=== PATIENT | male | born 1990 | race Caucasian/White ===

== ENCOUNTER 2016-10-07 13:47 | Emergency (ER) | payer OTHER ==
[2016-10-07 13:57] VITALS: BP 145/94; TEMP 98.5; BMI 30.5
--- NOTE | 2016-10-07 14:35 | DI ---
Exam: Three-view right foot. Date: 10/07/2016. Comparison: None. HISTORY: Pain. FINDINGS: The soft tissues are within normal limits. The mineralization is normal. The bones are intact and the joint spaces are preserved. Impression: No acute osseous abnormality in the right foot.
--- NOTE | 2016-10-07 14:35 | DI ---
Exam: Three-view right ankle. Date: 10/07/2016. Comparison: None. HISTORY: Pain on the lateral side of the ankle. FINDINGS: The soft tissues are within normal limits. The mineralization is normal. The bones are intact and the joint spaces are preserved. Impression: No acute osseous abnormality in the right ankle.
[2016-10-07] MEDS ORDERED: NORCO 7.5-325 PO STA (14:44)
--- NOTE | 2016-10-07 14:48 | ED.PDOC ---
General ED Provider: Dr. DIAMANTE PEPPER-ER Chief Complaint: Ankle Pain/Injury Stated Complaint: i hurt my ankle Time Seen by Physician: 13:50 Mode of Arrival: Walk-In Information Source: Patient, Family Exam Limitations: No limitations Nursing and Triage Documentation Reviewed and Agree: Yes Musculoskeletal Complaint Exam - Ankle/Foot Complaint/Exam Location of Injury: Reports: Right, Ankle Mechanism of Injury: Reports: Trauma Onset/Duration: today Symptoms Are: Reports: Still present Onset of Pain: Reports: Immediate Initial Severity: Mild Current Severity: Mild Location: Reports: Discrete (right ankle) Character: Reports: Dull, Aching Alleviating: Reports: None Aggravating: Reports: Movement, Weight bearing Able to Bear Weight: No Associated Signs and Symptoms: Reports: Swelling, Bruising. Denies: Redness, Fever, Weakness, Numbness, Tingling Gout Risk Factors: Reports: Male Related Surgical History: Reports: None Lower Extremity Findings: Present: Swelling, Ecchymosis, Tenderness, Limited range of motion Achilles Tendon Abnormality: No Tenderness: Present: Lateral malleolus Limited Range of Motion: Present: Inversion, Eversion, Dorsiflexion, Plantarflexion Differential Diagnosis: Closed Fracture, Sprain, Strain Review of Systems - Review Of Systems Constitutional: Reports: No symptoms Eyes: Reports: No symptoms Ears, Nose, Mouth, Throat: Reports: No symptoms Respiratory: Reports: No symptoms Cardiac: Reports: No symptoms GI: Reports: No symptoms : Reports: No symptoms Musculoskeletal: Reports: Joint pain, Joint swelling, Muscle pain Skin: Reports: No symptoms Neurological: Reports: No symptoms Endocrine: Reports: No symptoms Hematologic/Lymphatic: Reports: No symptoms All Other Systems: Reviewed and Negative Past Medical History - Past Medical History Previously Healthy: Yes Endocrine: Reports: None Cardiovascular: Reports: Hypertension Respiratory: Reports: None Hematological: Reports: None Gastrointestinal: Reports: None Genitourinary: Reports: None Neuro/Psych: Reports: None Musculoskeletal: Reports: None Cancer: Reports: None - Surgical History General Surgical History: Reports: Orthopedic - Family History Family History: Reports: Unknown - Social History Smoking Status: Current some day smoker Hx Substance Use: No Alcohol Screening: None Lives: With family Physical Exam - Physical Exam Appearance: Well-appearing, No pain distress, Well-nourished Pain Distress: Mild Eyes: ALEK, EOMI, Conjunctiva clear ENT: Ears normal, Nose normal, Oropharynx normal Neck: Supple Respiratory: Airway patent, Breath sounds clear, Breath sounds equal, Respirations nonlabored Cardiovascular: RRR, Pulses normal, No rub, No murmur GI/: Soft, Nontender, No masses, Bowel sounds normal, No Organomegaly Musculoskeletal: Limited ROM Skin: Warm, Dry, Normal color Neurological: Sensation intact, Motor intact, Reflexes intact, Cranial nerves intact, Alert, Oriented Psychiatric: Affect appropriate, Mood appropriate Interpretation - Radiology Interpretation Radiology Interpretation By: Radiologist Radiology Results: Negative Critical Care Note - Critical Care Note Total Time (mins): 0 Course - Course Orders, Labs, Meds: Orders Category Date Time Status CRUTCHES [ED CRUTCHES] .ONCE EMERGENCY 10/07/16 14:43 Active ED JANINE WRAP .ONCE EMERGENCY 10/07/16 14:43 Active ED SPLINT APPLICATION .ONCE EMERGENCY 10/07/16 14:43 Active Hydrocodone Bit/Acetaminophen [[place] 7.5-325] MEDS 10/07/16 14:44 Discontinued 1 tab PO ONCE STA ANKLE, RIGHT MIN 3 VIEWS Stat RADS 10/07/16 14:13 Completed FOOT, RIGHT 3 VIEWS Stat RADS 10/07/16 14:13 Completed Medications Discontinued Medications Generic Name Dose Route Start Last Admin Trade Name Freq PRN Reason Stop Dose Admin Acetaminophen/Hydrocodone Bitart 1 tab 10/07/16 14:44 [place] 7.5-325 PO 10/07/16 14:45 ONCE STA Vital Signs: Temp Pulse Resp BP Pulse Ox 10/07/16 13:47 98.5 F 126 H 20 145/94 H 100 Departure - Departure Time of Disposition: 14:47 Disposition: HOME SELF-CARE Discharge Problem: Ankle strain Qualifiers: Encounter type: initial encounter Laterality: right Qualifier Code: (S96.911A) Strain of unspecified muscle and tendon at ankle and foot level, right foot, initial encounter Instructions: Ankle Sprain (ED), Ankle Stirrup Splint (ED) Condition: Good Pt referred to PMD for follow-up: Yes Additional Instructions: stay in splint and use crutches--norco 5mg q 4hrs prn pain#12--f/u with pcp this week Allergies/Adverse Reactions: Allergies No Known Allergies Allergy (Verified 10/07/16 13:53) Home Medications: Ambulatory Orders Atomoxetine HCl [Strattera] 80 mg PO DAILY 10/07/16 Disposition Discussed With: Patient
== END 2016-10-07 15:05 | disposition home or self-care (01) ==
LOC: ED 13:47
DX: S96.911A Strain of unspecified muscle and tendon at ankle and foot level, right foot, initial encounter (principal); I10 Essential (primary) hypertension
CPT/HCPCS: 99283

== ENCOUNTER 2016-11-08 15:10 | Outpatient (CLI) ==
--- NOTE | 2016-11-09 09:33 | MRI ---
EXAM: MRI of the right ankle/hind-foot without contrast COMPARISON: Right foot and ankle radiographs 10/07/2016. HISTORY: Right ankle pain. Fall. TECHNIQUE: Multiplanar noncontrast MR images of the right ankle/hind-foot were acquired using a 1.2 Laila magnet. FINDINGS: Mild degenerative changes of the ankle/hind-foot with most pronounced osteophytes dorsall y at the talonavicular joint. Small tibiotalar and subtalar joint effusions. 6 x 5 mL os trigonum with secondary degenerative changes. Low-level marrow edema throughout the medial and posterior mal leoli of the tibia which may represent reactive edema/stress reaction or contusion without a discret e fracture. The talar dome is intact. The distal Achilles tendon and proximal portion of the plantar fascia are intact. The anterior tibial, extensor hallicus longus and extensor digitorum tendons are intact. Mild poste rior tibial tendinosis and tenosynovitis. The flexor digitorum and flexor hallicus longus tendons a re intact. Mild peroneus longus/brevis tendinosis. Suspected small partial/split tear of the peron eus brevis just below the lateral malleolus. There is subcutaneous edema throughout the ankle most extensive anteriorly and laterally. Low-level edema medially. There is abnormal signal and morphology of the anterior tibiofibular ligament cons istent with a tear with discontinuity of the fibers the fibular attachment. Sprain of the interosse ous component of the syndesmosis without abnormal widening of the syndesmosis. Sprain/partial tear of the posterior tibiofibular ligament with suspected stripping of the posterior malleolar attachmen t ligament though without a definite avulsion fracture. There appear to be some thin residual intac t fibers. Multi septated T2 hyperintense lesion measuring 1.3 x 0.5 x 0.4 cm overlying the posterio r talofibular ligament and os trigonum suggesting a small ganglion/synovial cyst. Low grade sprains of the anterior talofibular, posterior talofibular and calcaneofibular ligaments. Sprain of the deltoid ligament. IMPRESSION: 1. Injury of the syndesmosis with a tear of the anterior tibiofibular ligament as well as sprain of the interosseous component of the syndesmosis and sprain/partial tear with stripping of the posteri or tibiofibular ligament. No abnormal widening of the syndesmosis. Marrow edema within the posterio r malleolus of the tibia along the attachment of the posterior tibiofibular ligament without a discr ete avulsion fracture. Marrow edema extends through the posterior portion of the medial malleolus. 2. Low grade sprains of additional lateral supporting ligaments of the ankle as well as the deltoid ligament medially. 3. Mild posterior tibial tendinosis and tenosynovitis. Peroneus longus/brevis tendinosis with susp ected small partial/split tear of the peroneus brevis. 4. Os trigonum with secondary degenerative changes. Overlying small ganglion/synovial cyst. Corre late for signs of posterior ankle impingement. 5. Small tibiotalar and subtalar joint effusions. 6. Subcutaneous edema which is most extensive anteriorly and laterally.
== END 2016-11-08 15:11 | disposition home or self-care (01) ==
LOC: RAD 15:10
PROVIDERS: ATTEND Nurse Practitioner Family
DX: M25.571 Pain in right ankle and joints of right foot (principal)

== ENCOUNTER 2017-03-12 14:11 | Outpatient (CLI) ==
--- NOTE | 2017-03-12 14:57 | US ---
EXAM: Ultrasound scrotum and contents. HISTORY: Left scrotal mass and tenderness. COMPARISON: None available. TECHNIQUE: Loaiza-scale and color Doppler images. FINDINGS: The right testicle measures 4.3 x 2.6 x 3.2 cm. There is homogeneous echogenicity with vascular flow. Right epididymis is unremarkable. There is a trace amount right scrotal fluid. The left testicle measures 4.1 x 2.4 x 3.2 cm. There is homogeneous echogenicity with vascular flow. Left epididymis is unremarkable. A 0.7 x 0.9 x 0.7 cm hyperechoic focus is seen within the scrotal sac posterior to the left testicle. There is a trace amount of left scrotal fluid. IMPRESSION: 1. Small hyperechoic focus posterior to the left testicle could represent a lipoma. Area of hemorrh age in the setting of recent trauma is an additional consideration. 2. No sonographic abnormality of the testes. 3. Trace bilateral hydroceles.
== END 2017-03-12 14:12 | disposition home or self-care (01) ==
LOC: RAD 14:11
PROVIDERS: ATTEND Physician Assistant
DX: N50.89 Other specified disorders of the male genital organs (principal)

== ENCOUNTER 2017-06-20 00:35 | Emergency (ER) ==
[2017-06-20] MEDS ORDERED: DILAUDID 2 MG/ML SYRINGE IM STA ×2 (00:41→01:33)
[2017-06-20] MEDS ORDERED: ZOFRAN 4 MG/2 ML IM STA ×2 (00:41→01:33)
[2017-06-20] MEDS ORDERED: ZOFRAN 4 MG/2 ML ONE (00:44)
[2017-06-20] MEDS ORDERED: DILAUDID 2 MG/ML SYRINGE ONE (00:44)
--- NOTE | 2017-06-20 00:45 | ED.PDOC ---
General ED Provider: Dr. KRISTINE HUTCHINSON Chief Complaint: Finger Pain/Injury Stated Complaint: Deep Laceration to left thumb, while using the table saw. can see bone Time Seen by Physician: 00:42 Primary Care Provider: ANILA LEE Nursing and Triage Documentation Reviewed and Agree: Yes Reviewed sepsis parameters & appropriate labs ordered?: No System Inflammatory Response Syndrome: Not Applicable Sepsis Protocol: For patient's 13 years and over: Temp is 96.8 and below OR 101 and greater Pulse >90 BPM Resp >20/minute Acutely Altered Mental Status Are patient's symptoms suggestive of a new infection, such as: -Pneumonia -Skin, Soft Tissue -Endocarditis -UTI -Bone, Joint Infection -Implantable Device -Acute Abdominal Infection -Wound Infection -Meningitis -Blood Stream Catheter Infection -Unknown Skin Complaint Exam - Lac/Torso/Upper Ext. Complaint/Exam Location of Injury: Left (thumb) Mechanism of Injury: Laceration, Puncture, FB potential Symptoms Are: Still present Initial Severity: Severe Current Severity: Severe Aggravating: Movement Alleviating: None Associated Signs and Symptoms: Denies: Fever, Chills, Erythema, Numbness, Tingling Differential Diagnoses: Laceration Review of Systems - Review Of Systems Constitutional: Reports: No symptoms Eyes: Reports: No symptoms Ears, Nose, Mouth, Throat: Reports: No symptoms Respiratory: Reports: No symptoms Cardiac: Reports: No symptoms GI: Reports: No symptoms : Reports: No symptoms Musculoskeletal: Reports: No symptoms Skin: Reports: No symptoms Neurological: Reports: No symptoms Endocrine: Reports: No symptoms Hematologic/Lymphatic: Reports: No symptoms All Other Systems: Reviewed and Negative Past Medical History - Past Medical History Previously Healthy: Yes Endocrine: Reports: None Cardiovascular: Reports: Hypertension Respiratory: Reports: None Hematological: Reports: None Gastrointestinal: Reports: None Genitourinary: Reports: None Neuro/Psych: Reports: None Musculoskeletal: Reports: None Cancer: Reports: None - Surgical History General Surgical History: Reports: Orthopedic - Family History Family History: Reports: Unknown - Social History Smoking Status: Current some day smoker Smoking Cessation Counseling Time: > 3 min - 10 min Hx Substance Use: No Alcohol Screening: None Physical Exam - Physical Exam Appearance: Well-appearing, No pain distress, Well-nourished Eyes: ALEK, EOMI, Conjunctiva clear ENT: Ears normal, Nose normal, Oropharynx normal Respiratory: Airway patent, Breath sounds clear, Breath sounds equal, Respirations nonlabored Cardiovascular: RRR, Pulses normal, No rub, No murmur GI/: Soft, Nontender, No masses, Bowel sounds normal, No Organomegaly Musculoskeletal: Normal strength, ROM intact, No edema, No calf tenderness Skin: Warm (left thumb had deep laceration, rom in destal thumb decreased.), Dry , Normal color Neurological: Sensation intact, Motor intact, Reflexes intact, Cranial nerves intact, Alert, Oriented Psychiatric: Affect appropriate, Mood appropriate Critical Care Note - Critical Care Note Total Time (mins): 25 Course - Course Orders, Labs, Meds: Orders Category Date Time Status Ceftriaxone Sodium [Rocephin] MEDS 06/20/17 01:33 Stat 1 gm IM ONCE STA Hydromorphone HCl/Pf [Dilaudid 2 mg/ml Syringe] MEDS 06/20/17 00:44 Discontinued 2 mg .ROUTE .STK-MED ONE Hydromorphone HCl/Pf [Dilaudid 2 mg/ml Syringe] MEDS 06/20/17 00:41 Discontinued 2 mg IM ONCE STA Hydromorphone HCl/Pf [Dilaudid 2 mg/ml Syringe] MEDS 06/20/17 01:33 Stat 2 mg IM ONCE STA Lidocaine HCl/Pf [Lidocaine HCl 1% Sdv] MEDS 06/20/17 01:33 Stat 5 ml SUBCUT ONCE STA Ondansetron HCl/Pf [Zofran 4 mg/2 ml] MEDS 06/20/17 00:44 Discontinued 4 mg .ROUTE .STK-MED ONE Ondansetron HCl/Pf [Zofran 4 mg/2 ml] MEDS 06/20/17 00:41 Discontinued 4 mg IM ONCE STA Ondansetron HCl/Pf [Zofran 4 mg/2 ml] MEDS 06/20/17 01:33 Stat 4 mg IM ONCE STA THUMB, LEFT Stat RADS 06/20/17 00:41 Completed Medications Generic Name Dose Route Start Last Admin Trade Name Freq PRN Reason Stop Dose Admin Ceftriaxone Sodium 1 gm 06/20/17 01:33 Rocephin IM 06/20/17 01:34 ONCE STA Hydromorphone HCl 2 mg 06/20/17 01:33 Dilaudid 2 Mg/Ml Syringe IM 06/20/17 01:34 ONCE STA Lidocaine HCl 5 ml 06/20/17 01:33 Lidocaine Hcl 1% Sdv SUBCUT 06/20/17 01:34 ONCE STA Ondansetron HCl 4 mg 06/20/17 01:33 Zofran 4 Mg/2 Ml IM 06/20/17 01:34 ONCE STA Discontinued Medications Generic Name Dose Route Start Last Admin Trade Name Enoc PRN Reason Stop Dose Admin Hydromorphone HCl 2 mg 06/20/17 00:41 06/20/17 00:51 Dilaudid 2 Mg/Ml Syringe IM 06/20/17 00:42 2 mg ONCE STA Administration Ondansetron HCl 4 mg 06/20/17 00:41 06/20/17 00:52 Zofran 4 Mg/2 Ml IM 06/20/17 00:42 4 mg ONCE STA Administration Vital Signs: Temp Pulse Resp BP Pulse Ox 06/20/17 00:44 98 F 102 H 20 168/96 H 100 Departure - Departure Time of Disposition: 01:34 Disposition: TSF SHORT-TRM HOSP Discharge Problem: Laceration of thumb Qualifiers: Encounter type: initial encounter Damage to nail status: with damage Foreign body presence: without foreign body Laterality: left Qualified Code(s): S61.112A - Laceration without foreign body of left thumb with damage to nail, initial encounter Instructions: Tendon Laceration (ED) Condition: Stable Pt referred to PMD for follow-up: Yes IPMP verified?: No Additional Instructions: Dr Amador is going to see patient in his office at 8 am. keep hand elevated Prescriptions: Hydrocodone Bit/Acetaminophen [[place] 7.5-325] 1 each PO Q8H #7 tablet Allergies/Adverse Reactions: Allergies No Known Allergies Allergy (Verified 10/07/16 13:53) Home Medications: Ambulatory Orders Lisdexamfetamine Dimesylate [Vyvanse] 40 mg PO DAILY #30 10/10/16 Escitalopram Oxalate [Lexapro] 5 mg PO DAILY 06/20/17 Hydrocodone Bit/Acetaminophen [[place] 7.5-325] 1 each PO Q8H #7 tablet 06/20/17 Disposition Discussed With: Patient, Family
[2017-06-20 00:54] VITALS: BP 168/96; TEMP 98; BMI 29.7
--- NOTE | 2017-06-20 01:01 | DI ---
EXAM: Left thumb, three views, 06/20/2017 HISTORY: Puncture wound COMPARISON: None. FINDINGS / IMPRESSION: The visualized osseous structures appear intact. Anatomic alignment appears within normal limits. There is no evidence of fracture or dislocation. No acute osseous abnormality.
[2017-06-20] MEDS ORDERED: ROCEPHIN IM STA (01:33)
[2017-06-20] MEDS ORDERED: LIDOCAINE HCL 1% SDV SUBCUT STA (01:33)
== END 2017-06-20 02:13 | disposition home or self-care (01) ==
LOC: ED 00:35
DX: S61.112A Laceration without foreign body of left thumb with damage to nail, initial encounter (principal); W29.8XXA Contact with other powered hand tools and household machinery, initial encounter; I10 Essential (primary) hypertension; F17.210 Nicotine dependence, cigarettes, uncomplicated
CPT/HCPCS: 96372; 99283

== ENCOUNTER 2017-09-29 21:28 | Emergency (ER) | payer OTHER ==
[2017-09-29] MEDS ORDERED: URO-JET MUCOUSMEMB STA (21:33)
[2017-09-29] MEDS ORDERED: SODIUM CHLORIDE 1,000 ML IV STA (21:34)
[2017-09-29 21:44] VITALS: TEMP 97.8; BMI 30.1
--- NOTE | 2017-09-29 21:48 | ED.PDOC ---
General ED Provider: Dr. DIAMANTE PEPPER-ER Chief Complaint: Overdose Stated Complaint: he took an overdose of 5mg of valium--told ems everything is my fault--maybe 70-80 tabs---his said he tried to hang himself last week but was unsuccessful Time Seen by Physician: 21:35 Mode of Arrival: Ambulance Information Source: Family, EMT Exam Limitations: No limitations Primary Care Provider: ANILA LEE Nursing and Triage Documentation Reviewed and Agree: Yes Reviewed sepsis parameters & appropriate labs ordered?: Yes System Inflammatory Response Syndrome: Not Applicable Sepsis Protocol: For patient's 13 years and over: Temp is 96.8 and below OR 101 and greater Pulse >90 BPM Resp >20/minute Acutely Altered Mental Status Are patient's symptoms suggestive of a new infection, such as: -Pneumonia -Skin, Soft Tissue -Endocarditis -UTI -Bone, Joint Infection -Implantable Device -Acute Abdominal Infection -Wound Infection -Meningitis -Blood Stream Catheter Infection -Unknown Psychological Complaint Exam - Overdose/Toxic Exposure Complaint/Exam Patient Complains Of: Overdose Ingestion Occurred: 11/ hrs Exposure Occurred: as above Witnessed: Yes Ingestion: Drug Character: Reports: Oral Aggravating: Reports: Swallowing Treatment Prior To Arrival: None Associated Signs And Symptoms: Reports: Intentional ingestion Related History: Reports: Suicidal gestures Completed Suicide Risk Factors: Male, Gag Reflex Present: Yes Inability To Swallow Present: No Drooling Present: No Glascow Coma Scale (see protocol): 14 Miosis Present: No Mydriasis Present: No Nystagmus Present: No Speech: Present: Dysarthric Aphasia: Present: Expressive Gait: Present: Abnormal Patient Uncooperative For Exam: Yes Mood: Present: Anxious Appearance: Present: Clean Insight: Present: Limited Memory: Impaired Judgement: Impaired Danger To Others: No Patient Medically Stable For: Psych evaluation, Referral, Transfer Differential Diagnoses: Anxiety, Toxic Eposure Quality Indicator For Non-Traumatic Chest Pain/Syncope: EKG Performed Review of Systems - Review Of Systems Constitutional: Reports: No symptoms Eyes: Reports: No symptoms Ears, Nose, Mouth, Throat: Reports: No symptoms Respiratory: Reports: No symptoms Cardiac: Reports: No symptoms GI: Reports: No symptoms : Reports: No symptoms Musculoskeletal: Reports: No symptoms Skin: Reports: No symptoms Neurological: Reports: Anxiety, Depressed, Emotional problems Endocrine: Reports: No symptoms Hematologic/Lymphatic: Reports: No symptoms All Other Systems: Reviewed and Negative Past Medical History - Past Medical History Previously Healthy: Yes Endocrine: Reports: None Cardiovascular: Reports: Hypertension Respiratory: Reports: None Hematological: Reports: None Gastrointestinal: Reports: None Genitourinary: Reports: None Neuro/Psych: Reports: None Musculoskeletal: Reports: None Cancer: Reports: None - Surgical History General Surgical History: Reports: Orthopedic - Family History Family History: Reports: Unknown - Social History Smoking Status: Current some day smoker Hx Substance Use: No Alcohol Screening: Occasionally Lives: With family - Immunizations Tetanus Shot up to Date: No (unknown) Physical Exam - Physical Exam Appearance: Well-appearing, No pain distress, Well-nourished Eyes: ALEK, EOMI, Conjunctiva clear ENT: Ears normal, Nose normal, Oropharynx normal Neck: Supple Respiratory: Airway patent, Breath sounds clear, Breath sounds equal, Respirations nonlabored Cardiovascular: RRR, Pulses normal, No rub, No murmur GI/: Soft, Nontender, No masses, Bowel sounds normal, No Organomegaly Musculoskeletal: Normal strength, ROM intact, No edema, No calf tenderness Skin: Warm, Dry, Normal color Neurological: Sensation intact, Motor intact, Reflexes intact, Cranial nerves intact, Alert to pain, Unresponsive Psychiatric: Affect appropriate, Mood appropriate Interpretation - EKG Interpretation Time of EKG #1: 23:05 Rate: Normal Rhythm: Sinus Ectopy: None [place]: NL ST Segment: Normal Interpretation: nsr Procedures - Intubation Indication: Present: Altered Mental Status, Airway Protection Time of Intubation: 22:05 Medications: Yes: Succinylcholine, Propofol Type of Tube Used: Endotracheal Tube Size: 7.5 Cricoid Pressure Used: Yes Tube Fletcher Used: Yes Number of Attempts: 1 Suction Used: Yes Glidescope Used: Yes CO2 Detector Used: Yes Lung Sounds Equal Bilaterally: Yes Intubation Complications: Present: No complications Tube Inserted By: Anthony george Tube Placement Verified by X-ray: Yes Progress/Xray Impression: et tube in correct position Physician Notification - Case Discussed Physician Notified: dr [email or web address] Time of Notification: 22:59 Critical Care Note - Critical Care Note Total Time (mins): 60 Course - Course Hematology/Chemistry: 09/29/17 21:32 09/29/17 21:38 Orders, Labs, Meds: Lab Review 09/29/17 09/29/17 09/29/17 21:32 21:32 21:38 WBC 7.76 RBC 4.19 L Hgb 12.4 L Hct 36.1 L MCV 86.2 MCH 29.6 MCHC 34.3 RDW Coeff of Esteban 12.4 Plt Count 287 Immature Gran % (Auto) 0.3 Neut % (Auto) 56.5 Lymph % (Auto) 27.2 [place] % (Auto) 9.8 Eos % (Auto) 5.4 Baso % (Auto) 0.8 Immature Gran # (Auto) 0.0 Neut # (Auto) 4.4 Lymph # (Auto) 2.1 [place] # (Auto) 0.8 Eos # (Auto) 0.4 Baso # (Auto) 0.1 Puncture Site Lr O2 Saturation 98.0 ABG pH 7.455 H ABG pCO2 38.3 ABG pO2 103.0 H ABG HCO3 26.9 H ABG Total CO2 28 ABG Base Excess 3 H King Test + O2 Delivery Device Vent FiO2 % 30.0 Sodium 140 Potassium 3.0 L Chloride 107 Carbon Dioxide 24 Anion Gap 12.0 BUN 8 Creatinine 0.80 Estimated GFR (MDRD) 116.00 BUN/Creatinine Ratio 10.00 Glucose 82 Calcium 9.3 Total Bilirubin 0.3 AST 17 ALT 19 Alkaline Phosphatase 66 Total Protein 6.3 L Albumin 3.5 Globulin 2.8 Albumin/Globulin Ratio 1.25 Urine Color Urine Clarity Urine pH Ur Specific Miller Urine Protein Urine Glucose (UA) Urine Ketones Urine Blood Urine Nitrite Urine Bilirubin Urine Urobilinogen Ur Leukocyte Esterase Urine Microscopic RBC Ur Squamous Epith Cells Urine Bacteria Urine Sperm Salicylate Level mg/dL < 5.0 Urine Opiates Screen Ur Oxycodone Screen Urine Methadone Screen Ur Propoxyphene Screen Acetaminophen < 3 L Ur Barbiturates Screen U Tricyclic Antidepress Ur Phencyclidine Scrn Ur Amphetamine Screen U Methamphetamines Scrn U Benzodiazepines Scrn Urine Cocaine Screen U Cannabinoids Screen Plasma/Serum Alcohol 09/29/17 09/29/17 09/29/17 21:38 22:26 22:26 WBC RBC Hgb Hct MCV MCH MCHC RDW Coeff of Esteban Plt Count Immature Gran % (Auto) Neut % (Auto) Lymph % (Auto) [place] % (Auto) Eos % (Auto) Baso % (Auto) Immature Gran # (Auto) Neut # (Auto) Lymph # (Auto) [place] # (Auto) Eos # (Auto) Baso # (Auto) Puncture Site O2 Saturation ABG pH ABG pCO2 ABG pO2 ABG HCO3 ABG Total CO2 ABG Base Excess King Test O2 Delivery Device FiO2 % Sodium Potassium Chloride Carbon Dioxide Anion Gap BUN Creatinine Estimated GFR (MDRD) BUN/Creatinine Ratio Glucose Calcium Total Bilirubin AST ALT Alkaline Phosphatase Total Protein Albumin Globulin Albumin/Globulin Ratio Urine Color Yellow Urine Clarity Clear Urine pH 6.0 Ur Specific [place] >=1.030 Urine Protein 2+ Urine Glucose (UA) Negative Urine Ketones Negative Urine Blood Trace-intact Urine Nitrite Negative Urine Bilirubin 1+ Urine Urobilinogen 0.2 Ur Leukocyte Esterase Negative Urine Microscopic RBC 2-5 Ur Squamous Epith Cells 0-2 Urine Bacteria Trace Urine Sperm 3+ Salicylate Level mg/dL Urine Opiates Screen Negative Ur Oxycodone Screen Negative Urine Methadone Screen Negative Ur Propoxyphene Screen Negative Acetaminophen Ur Barbiturates Screen Negative U Tricyclic Antidepress Negative Ur Phencyclidine Scrn Negative Ur Amphetamine Screen Positive U Methamphetamines Scrn Negative U Benzodiazepines Scrn Positive Urine Cocaine Screen Negative U Cannabinoids Screen Negative Plasma/Serum Alcohol < 10.0 Orders Category Date Time Status ABG DRAW REQUEST Stat CARDIO 09/29/17 21:32 Completed EKG-(ED ONLY) Stat CARDIO 09/29/17 21:32 Completed VENTILATOR Routine CARDIO 09/29/17 23:03 Completed TRANSFER TO OUTSIDE FACILITY .TO [facility] ( CARE 09/29/17 23:00 Active [place] [place], [place]) WRITE TRANSFER/SBAR NOTE ONCE CARE 09/29/17 23:00 Completed DISCHARGE ASSESSMENT ONCE DISCHARGE 09/29/17 23:00 Completed WRITE DISCHARGE NOTE ONCE DISCHARGE 09/29/17 23:00 Completed ED CATHETER INSERTION AND CARE .ONCE EMERGENCY 09/29/17 21:33 Active ED IV/MEDIPORT/POWERPORT .ONCE EMERGENCY 09/29/17 21:34 Active Poison Control [ED POISON CONTROL CONTACTED] .ONCE EMERGENCY 09/29/17 21:52 Active Restraints [ED RESTRAINTS] .ONCE EMERGENCY 09/29/17 22:53 Active ABG Stat LAB 09/29/17 21:32 Completed CBC W/ AUTO DIFF Stat LAB 09/29/17 21:32 Completed COMPREHENSIVE METABOLIC PANEL Stat LAB 09/29/17 21:38 Completed ETOH LEVEL [BLOOD ALCOHOL] Stat LAB 09/29/17 21:38 Completed SALICYLATE Stat LAB 09/29/17 21:38 Completed TYLENOL LEVEL [ACETAMINOPHEN] Stat LAB 09/29/17 21:38 Completed URINALYSIS C & S IF INDICATED Stat LAB 09/29/17 22:26 Completed URINE DRUG SCREEN (RAPID FOR ED) [DRUG SCREEN, URINE, LAB 09/29/17 22:26 Completed RAPID] Stat 0.9 % Sodium Chloride [Saline Flush] MEDS 09/29/17 21:34 Discontinued 1 syr IVF PRN PRN Lidocaine HCl [Uro-Jet] MEDS 09/29/17 21:33 Discontinued 10 ml [id number] ONCE STA Premix Vial [Premix Infusion 100 ml Vial] 1 vial MEDS 09/29/17 22:30 Discontinued Propofol Inj [Diprivan 100 ml Vial] 1,000 mg IV 100 mcg/kg/min Propofol Inj [Diprivan 100 ml Vial] 100 ml MEDS 09/29/17 23:23 Discontinued IV .STK-MED Propofol Inj [Diprivan 20 ml Vial] MEDS 09/29/17 22:13 Discontinued 100 mg IVP ONCE STA Sodium Chloride 0.9% [Sodium Chloride] 1,000 ml MEDS 09/29/17 21:34 Discontinued IV 100 mls/hr Succinylcholine Chloride [Anectine] MEDS 09/29/17 21:50 Discontinued 100 mg IVP ONCE STA CT HEAD W/O CONTRAST Stat RADS 09/29/17 21:32 Completed CXR [CHEST, 1V AP ONLY] Stat RADS 09/29/17 21:32 Completed Medications Discontinued Medications Generic Name Dose Route Start Last Admin Trade Name Freq PRN Reason Stop Dose Admin Sodium Chloride 1,000 mls @ 100 mls/hr 09/29/17 21:34 09/29/17 22:57 Sodium Chloride IV 09/30/17 07:33 100 mls/hr .Q10H STA Administration Propofol 1,000 mg/ Sterile 100 mls @ 52.38 mls/hr 09/29/17 22:30 09/29/17 22: 15 Water IV 100 mcg/kg/min .Q1H55M SIL 52.38 mls/hr Administration Protocol 100 MCG/KG/MIN Lidocaine HCl 10 ml 09/29/17 21:33 09/29/17 22:57 Uro-Jet MUCOUSMEMB 09/29/17 21:34 Not Given ONCE STA Propofol 100 mg 09/29/17 22:13 09/29/17 22:10 Diprivan 20 Ml Vial IVP 09/29/17 22:14 100 mg ONCE STA Administration Sodium Chloride 1 syr 09/29/17 21:34 09/29/17 22:57 Saline Flush IVF 1 syr PRN PRN Administration To flush IV Succinylcholine Chloride 100 mg 09/29/17 21:50 09/29/17 21:59 Anectine IVP 09/29/17 21:51 100 mg ONCE STA Administration Vital Signs: Temp Pulse Resp BP Pulse Ox 09/29/17 22:15 76 14 109/74 09/29/17 22:05 14 09/29/17 21:31 97.8 F 89 18 106/65 95 Departure - Departure Time of Disposition: 22:59 Disposition: TSF SHORT-TRM HOSP Discharge Problem: Drug overdose Condition: Stable Pt referred to PMD for follow-up: No IPMP verified?: No Allergies/Adverse Reactions: Allergies No Known Allergies Allergy (Verified 10/07/16 13:53) Home Medications: Ambulatory Orders Lisdexamfetamine Dimesylate [Vyvanse] 40 mg PO DAILY #30 10/10/16 Escitalopram Oxalate [Lexapro] 5 mg PO DAILY 06/20/17 Transfer Form Completed: Yes Disposition Discussed With: Family
[2017-09-29] MEDS ORDERED: ANECTINE IVP STA (21:50)
--- NOTE | 2017-09-29 22:06 | CT ---
EXAM: CT head without contrast. HISTORY: Mental status change. PROCEDURE: Contiguous axial CT images of the head without contrast with coronal and sagittal reforma ts. FINDINGS: The ventricles and basal cisterns are normal in size and configuration. No evidence of ma ss or midline shift. No intracranial hemorrhage or evidence of large vessel infarct. No extra-axial fluid collection. The paranasal sinuses and mastoid air cells are well-aerated. Impression: Negative CT of the head.
[2017-09-29] MEDS ORDERED: DIPRIVAN 20 ML VIAL IVP STA (22:13)
[2017-09-29] MEDS ORDERED: DIPRIVAN 100 ML VIAL 1,000 MG in PREMIX INFUSION 100 ML VIAL 1 VIAL IV SCH (22:30)
--- NOTE | 2017-09-29 22:39 | ED.PDOC ---
Procedures - Intubation Indication: Present: Altered Mental Status Time of Intubation: 22:01 Medications: Yes: Succinylcholine (RSI - 100mg Anectine IVP, cricoid press Lady RN, EtCO2 +) Type of Tube Used: Endotracheal Tube Size: 7.5 Cricoid Pressure Used: Yes Tube Fletcher Used: Yes Position of Tube at Lip: 23 Number of Attempts: 1 Suction Used: No Glidescope Used: No CO2 Detector Used: Yes Lung Sounds Equal Bilaterally: Yes Intubation Complications: Present: No complications Tube Inserted By: Saulo Hayes CRNA Tube Placement Verified by X-ray: Yes Conscious Sedation - Pre-op Assessment Weight: 192 lb 7.417 oz Surgical History: right knee surgery for MRSA - Medical History Past Medical History: GERD, Anxiety, Other Other History: stomach ulcers 5-6 yrs ago, mass on left testicle-due for U/S 01/27, ptsd
--- NOTE | 2017-09-29 22:40 | ED.PDOC ---
Procedures - IV/Art Line Insertion Location: Lt Ant. Number of Attempts: 1 (Art stick for ABGs) Blood Return Positive: Yes Conscious Sedation - Pre-op Assessment Weight: 192 lb 7.417 oz Surgical History: right knee surgery for MRSA - Medical History Past Medical History: GERD, Anxiety, Other Other History: stomach ulcers 5-6 yrs ago, mass on left testicle-due for U/S 01/27, ptsd
[2017-09-29 22:59] VITALS: BP 109/74
[2017-09-29] MEDS ORDERED: DIPRIVAN 100 ML VIAL 200 ML IV ONE (23:23)
--- NOTE | 2017-09-30 02:15 | DI ---
EXAM: AP single view of the chest. HISTORY: Endotracheal tube placement. FINDINGS: The endotracheal tube is in adequate position. The bones are unremarkable. The cardiac si lhouette and pulmonary vasculature are within normal limits. The costophrenic angles are clear. No infiltrate or consolidation. There is a calcified granuloma in the left upper lobe. Impression: No acute cardiopulmonary disease. Endotracheal tube in adequate position.
== END 2017-09-29 23:30 | disposition short-term general hospital (02) ==
LOC: ED 21:28
DX: T42.4X2A Poisoning by benzodiazepines, intentional self-harm, initial encounter (principal); F17.210 Nicotine dependence, cigarettes, uncomplicated; R40.2431 Glasgow coma scale score 3-8, in the field [EMT or ambulance]
CPT/HCPCS: 36415; 80053; 80306; 80307; 81001; 82803; 85025; 93005; 93010; 96361; 96365; 96375; 99291

== ENCOUNTER 2018-09-30 12:05 | Emergency (ER) ==
[2018-09-30 12:12] VITALS: BP 132/66; TEMP 97; BMI 30.3
--- NOTE | 2018-09-30 13:08 | DI ---
EXAM: Chest one view HISTORY: Pain with sharp breath COMPARISON: 09/29/1917 and 05/21/2013 TECHNIQUE: Single view of the chest was performed FINDINGS: No airspace consolidation. Granulomatous calcification left upper lobe, unchanged from 14. There is no pleural effusion or pneumothorax. The heart is normal in size. The mediastinal con tour is normal. There are no acute abnormalities of the bones. IMPRESSION: No acute cardiopulmonary process.
[2018-09-30] MEDS ORDERED: SODIUM CHLORIDE 1,000 ML IV STA (13:58)
--- NOTE | 2018-09-30 14:30 | ED.PDOC ---
General ED Provider: Dr. DUDLEY BHATTI Chief Complaint: Extremity Pain/Injury Stated Complaint: RIGHT SIDE CHEST WALL PAIN WITH MOVEMENT OF THE ARM Time Seen by Physician: 12:12 (SEEN WITH LINDSAY ) Mode of Arrival: Walk-In Information Source: Patient Exam Limitations: No limitations Primary Care Provider: ANILA LEE Nursing and Triage Documentation Reviewed and Agree: Yes Does patient meet sepsis criteria?: No If yes, has appropriate treatment been initiated?: No System Inflammatory Response Syndrome: Not Applicable Sepsis Protocol: For patient's 13 years and over: Temp is 96.8 and below OR 101 and greater Pulse >90 BPM Resp >20/minute Acutely Altered Mental Status Are patient's symptoms suggestive of a new infection, such as: -Pneumonia -Skin, Soft Tissue -Endocarditis -UTI -Bone, Joint Infection -Implantable Device -Acute Abdominal Infection -Wound Infection -Meningitis -Blood Stream Catheter Infection -Unknown Cardiovascular Complaint Exam - Chest Pain Complaint/Exam Onset: Sudden Duration: 3 DAYS CONSTANT WITH ARM MOVEMENT ON THE RIGHT NO IMPACT TRAUMA REPORTED Symptoms Are: Still present Initial Severity: Mild Current Severity: Mild Location: Reports: Discrete Pain Radiates: Reports: Back Character: Reports: Dull Aggravating: Reports: None Alleviating: Reports: Rest Associated Signs and Symptoms: Denies: Diaphoresis, Nausea, Vomiting, Fever, Palpitations, Cough, Hemoptysis, Back pain, Abdominal pain, Dizziness, Short of air, Calf pain, Calf swelling Related Surgical History: Reports: None History of Healthcare-Acquired Pneumonia: Reports: No AMI/ACS Risk Factors: Reports: None TAD Risk Factors: Reports: None Prior Care for this Complaint: No Recent Stress Test: No Recent Echo/LV Function: No JVD Present: No Subcutaneous Emphysema Present: No Diminshed Breath Sounds: No Reproducible Chest Wall Pain: No Bilateral Pulses Present: No Unequal Pulses Noted: No If Risk Factors for AMI/ACS Consider: EKG, Cardiac Enzymes Review of Systems - Review Of Systems Constitutional: Reports: No symptoms Eyes: Reports: No symptoms Ears, Nose, Mouth, Throat: Reports: No symptoms Respiratory: Reports: No symptoms Cardiac: Reports: Chest pain GI: Reports: No symptoms : Reports: No symptoms Musculoskeletal: Reports: No symptoms Skin: Reports: No symptoms Neurological: Reports: No symptoms Endocrine: Reports: No symptoms Hematologic/Lymphatic: Reports: No symptoms All Other Systems: Reviewed and Negative Past Medical History - Past Medical History Previously Healthy: Yes Endocrine: Reports: None Cardiovascular: Reports: Hypertension Respiratory: Reports: None Hematological: Reports: None Gastrointestinal: Reports: None Genitourinary: Reports: None Neuro/Psych: Reports: None Musculoskeletal: Reports: None Cancer: Reports: None - Surgical History General Surgical History: Reports: Orthopedic - Family History Family History: Reports: Unknown - Social History Smoking Status: Current every day smoker Hx Substance Use: No Alcohol Screening: None - Immunizations Tetanus Shot up to Date: Yes Physical Exam - Physical Exam Appearance: Well-appearing, No pain distress, Well-nourished Eyes: ALEK, EOMI, Conjunctiva clear ENT: Ears normal, Nose normal, Oropharynx normal Respiratory: Airway patent, Breath sounds clear, Breath sounds equal, Respirations nonlabored Cardiovascular: RRR, Pulses normal, No rub, No murmur GI/: Soft, Nontender, No masses, Bowel sounds normal, No Organomegaly Musculoskeletal: Normal strength, ROM intact, No edema, No calf tenderness Skin: Warm, Dry, Normal color Neurological: Sensation intact, Motor intact, Reflexes intact, Cranial nerves intact, Alert, Oriented Psychiatric: Affect appropriate, Mood appropriate Interpretation - Radiology Interpretation Radiology Interpretation By: Radiologist Radiology Results: No acute changes - Demand Generation Manager Rate: Normal Rhythm: Sinus Ectopy: None - EKG Interpretation Rate: Normal Rhythm: Sinus Ectopy: None [place]: NL ST Segment: Normal Critical Care Note - Critical Care Note Total Time (mins): 0 Course - Course Hematology/Chemistry: 09/30/18 13:00 09/30/18 13:00 Orders, Labs, Meds: Lab Review 09/30/18 09/30/18 09/30/18 13:00 13:00 13:00 WBC 10.97 H RBC 4.34 L Hgb 12.8 L Hct 38.0 L MCV 87.6 MCH 29.5 MCHC 33.7 RDW Coeff of Esteban 12.8 Plt Count 293 Immature Gran % (Auto) 0.5 Neut % (Auto) 61.5 Lymph % (Auto) 22.1 [place] % (Auto) 10.0 Eos % (Auto) 5.2 Baso % (Auto) 0.7 Immature Gran # (Auto) 0.1 Neut # (Auto) 6.7 Lymph # (Auto) 2.4 [place] # (Auto) 1.1 Eos # (Auto) 0.6 Baso # (Auto) 0.1 PT 9.3 INR 0.93 APTT 27.4 Sodium 138.8 Potassium 3.67 Chloride 105.9 Carbon Dioxide 24.4 Anion Gap 12.17 BUN 13.4 Creatinine 0.74 Estimated GFR (MDRD) 126.00 BUN/Creatinine Ratio 18.10 Glucose 96.2 Calcium 8.87 Total Bilirubin 0.27 AST 17.9 ALT 17.1 Alkaline Phosphatase 71.0 Total Creatine Kinase 123.0 CK-MB (CK-2) 1.150 CK-MB (CK-2) % 0.9300 Troponin I < 0.012 Total Protein 6.63 Albumin 4.12 Globulin 2.51 Albumin/Globulin Ratio 1.64 Orders Category Date Time Status EKG-(ED ONLY) Stat CARDIO 09/30/18 12:51 Completed EKG-(ED ONLY) Stat CARDIO 09/30/18 14:24 Ordered NPO REMINDER: IMAGING ONCE CARE 09/30/18 13:58 Active ED IV/MEDIPORT/POWERPORT .ONCE EMERGENCY 09/30/18 13:58 Active CBC W/ AUTO DIFF Stat LAB 09/30/18 13:00 Completed COMPREHENSIVE METABOLIC PANEL Stat LAB 09/30/18 13:00 Completed CREATINE KINASE Stat LAB 09/30/18 13:00 Completed PARTIAL THROMBOPLASTIN TIME Stat LAB 09/30/18 13:00 Completed PT WITH INR Stat LAB 09/30/18 13:00 Completed TROPONIN I Stat LAB 09/30/18 13:00 Completed 0.9 % Sodium Chloride [Saline Flush] MEDS 09/30/18 13:58 Ordered 1 syr IVF PRN PRN Sodium Chloride 0.9% [Sodium Chloride] 1,000 ml MEDS 09/30/18 13:58 Active IV 125 mls/hr CHEST, 1V AP ONLY Stat RADS 09/30/18 12:[address] CHEST PE PROTOCOL Stat RADS 09/30/18 13:57 Ordered Medications Generic Name Dose Route Start Last Admin Trade Name Freq PRN Reason Stop Dose Admin Sodium Chloride 1,000 mls @ 125 mls/hr 09/30/18 13:58 Sodium Chloride IV 09/30/18 21:57 .Q8H STA Sodium Chloride 1 syr 09/30/18 13:58 Saline Flush IVF PRN PRN To flush IV Vital Signs: Temp Pulse Resp BP Pulse Ox 09/30/18 12:06 97.0 F L 82 16 132/66 96 JAENNETTE Risk Score JEANNETTE Risk Score: Risk Score Odds of by 30D 0 0.1 (0.1-0.2) 1 0.3 (0.2-0.3) 2 0.4 (0.3-0.5) 3 0.7 (0.6-0.9) 4 1.2 (1.0-1.5) 5 2.2 (1.9-2.6) 6 3.0 (2.5-3.6) 7 4.8 (3.8-6.1) Departure - Departure Time of Disposition: 14:30 Disposition: HOME SELF-CARE Discharge Problem: Chest pain, atypical Instructions: Chest Pain (ED), Chest Wall Pain (ED) Condition: Good Pt referred to PMD for follow-up: Yes IPMP verified?: No Additional Instructions: Please call your Family Physician as soon as possible to schedule a follow-up appointment. Allergies/Adverse Reactions: Allergies No Known Allergies Allergy (Verified 09/30/18 12:38) Home Medications: Ambulatory Orders Meloxicam, Submicronized [Vivlodex] 10 mg PO DAILY 09/30/18 Prazosin HCl [Minipress] 2 mg PO BEDTIME 09/30/18
--- NOTE | 2018-09-30 14:53 | CT ---
EXAM: CT angiogram chest HISTORY: Chest pain COMPARISON: None TECHNIQUE: CT angiogram chest performed with intravenous contrast. Coronal and sagittal reformatted images obtained. MIP reformatted images created. FINDINGS: Thyroid and thoracic inlet appear normal. Heart normal in size. No pericardial effusion. Aorta normal in caliber. No aortic dissection. Esophagus unremarkable. No lymphadenopathy in the chest. Calcified left hilar lymph nodes, consistent with old granulomatous disease. Visualized por tion upper abdomen demonstrates no acute abnormality. Granulomatous calcification in the spleen. No acute abnormalities of the bones. Central airway patent. Calcified granuloma left upper lobe. 6 m m pulmonary nodule right lung image 46 and 3 mm pulmonary nodule left lung image 43. No pneumothorax . No pleural effusion. Bibasilar ground-glass opacities most likely atelectasis. No airspace conso lidation. No filling defects in the pulmonary greasy suggest a pulmonary embolism. IMPRESSION: 1. No evidence for pulmonary embolism. 2. Mild bibasilar ground-glass, likely atelectasis. No airspace consolidation. 3. Two pulmonary nodules measuring up to [address] chest follow-up in 6 months. 4. Findings of old granulomatous disease.
== END 2018-09-30 14:48 | disposition home or self-care (01) ==
LOC: ED 12:05
DX: R07.89 Other chest pain (principal); I10 Essential (primary) hypertension; F17.210 Nicotine dependence, cigarettes, uncomplicated
CPT/HCPCS: 36415; 80053; 82550; 82553; 84484; 85025; 85610; 85730; 93005; 93010; 99283

== ENCOUNTER 2018-10-08 11:37 | Outpatient (CLI) ==
--- NOTE | 2018-10-09 07:58 | DI ---
EXAM: CHEST FRONTAL AND LATERAL VIEWS HISTORY: Chest pain with breathing. COMPARISON: 09/30/2018 FINDINGS: Heart size and mediastinal contour remain within normal limits. Stable calcified granul dimitri left upper lobe. No acute infiltrates are seen. No vascular congestion. There is no consolidat ion, visible pleural fluid or pneumothorax. Bones reveal no acute fracture. IMPRESSION: No acute cardiopulmonary process.
--- NOTE | 2018-10-09 09:07 | DI ---
EXAM: Right ribs two view HISTORY: Right-sided pain COMPARISON: None FINDINGS: No displaced right rib fracture identified. No visible pneumothorax. IMPERSSION: No displaced right rib fracture identified.
== END 2018-10-08 11:38 | disposition home or self-care (01) ==
LOC: RAD 11:37
PROVIDERS: ATTEND Physician Assistant
DX: R07.1 Chest pain on breathing (principal); R91.8 Other nonspecific abnormal finding of lung field; R07.89 Other chest pain
CPT/HCPCS: 36415; 80053; 85025; 85651; 86140